=== PATIENT | female | born 1975 | race American Indian/Alaskan Native ===

== ENCOUNTER 2016-04-09 17:58 | Emergency (ER) | payer OTHER ==
[2016-04-09 18:09] VITALS: BP 117/85
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
== END 2016-04-09 23:40 | disposition left against medical advice (07) ==
LOC: ED 17:58
DX: S00.12XA Contusion of left eyelid and periocular area, initial encounter (principal); W50.0XXA Accidental hit or strike by another person, initial encounter; Y93.89 Activity, other specified; Y99.9 Unspecified external cause status; Y92.89 Other specified places as the place of occurrence of the external cause; Z53.21 Procedure and treatment not carried out due to patient leaving prior to being seen by health care provider
CPT/HCPCS: 36415; 70450; 70486; 72125; 81025; 84703

== ENCOUNTER 2020-06-18 10:20 | Outpatient (CLI) | payer OTHER ==
--- NOTE | 2020-06-18 11:50 | Mammography Report ---
DIGITAL SCREENING MAMMOGRAM WITH CAD, 06/18/2020 CLINICAL INFORMATION / INDICATION: Routine screening mammography. TECHNIQUE: Digital bilateral 2D mammography was obtained in the craniocaudal and mediolateral obliqu e projections. This examination was interpreted with the benefit of Computer-Aided Detection analysis . COMPARISON: 11/30/2019 FINDINGS: Breast Density: The breasts are extremely dense, which lowers the sensitivity of mammography. No dominant mass, suspicious calcifications, or architectural distortion in either breast. IMPRESSION: No mammographic evidence of malignancy. Follow up recommendation: Routine yearly BI-RADS Category 1: Negative. A "normal" or negative report should not discourage follow up or biopsy of a clinically significant f inding. A written summary of these findings will be mailed to the patient. The patient will be entered into a mammography reporting system which will generate a reminder letter for the patient's next appointmen t at the appropriate interval. The [employer] recommends yearly mammograms starting at age 40 and continuing as l akua as a woman is in good health. Breast MRI is recommended for women with an approximate 20-25% or greater lifetime risk of breast cancer, including women with a strong family history of breast or ova jocelyne cancer or who have been treated for Hodgkin's disease. Signer Name: Jesse Ronquillo MD Signed: 06/18/2020 11:46 AM Workstation Name: [id number]
== END 2020-06-18 10:21 | disposition home or self-care (01) ==
LOC: SPVWC 10:20
DX: Z12.31 Encounter for screening mammogram for malignant neoplasm of breast (principal)
CPT/HCPCS: 77067